=== PATIENT | male | born 1965 | race Caucasian/White ===

== ENCOUNTER 2017-11-26 18:28 | Inpatient (IN) ==
[2017-11-26] MEDS ORDERED: Naloxone 0.4 MG/ML INJ IVP PRN (21:04)
[2017-11-26] MEDS ORDERED: *HR* LORazepam 1 MG TABLET PO PRN (21:10)
[2017-11-26 21:21] LABS: Basophils % 0.1 %; Hematocrit 30.2 % (37.5-50.1); Hemoglobin 9.5 g/dL (12.9-16.9); Immature Granulocytes % 0.9 % (0-4); Lymphocytes # 0.6 K/mcL (0.6-4.6); Lymphocytes % 3.8 %; Mean Corpuscular HGB Conc 31.5 g/dL (31.6-35.5); Mean Corpuscular Hemoglobin 27.9 pg (28.0-33.3); Mean Corpuscular Volume 88.8 fL (83.0-100.0); Mean Platelet Volume 9.4 fL (9.4-12.4); Monocytes # 0.6 K/mcL (0.0-1.3); Monocytes % 3.7 %; Neutrophils # 13.6 K/mcL (1.6-8.9); Nucleated Red Blood Cells 0.1 /100 WBC (0); Platelet Count 282 K/mcL (140-400); Segmented Neutrophils % 91.5 %
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
[2017-11-26] MEDS: Ipratropium/Albuterol Neb 3 ML IH SCH (23:39)
[2017-11-27] MEDS: *HR* Methadone 10 MG TABLET PO SCH ×5 (00:39→23:55)
[2017-11-27] MEDS: Ipratropium/Albuterol Neb 3 ML IH SCH ×6 (04:01→23:48)
[2017-11-27 04:26] LABS: Basophils % 0.1 %; Hematocrit 33.1 % (37.5-50.1); Hemoglobin 10.2 g/dL (12.9-16.9); Immature Granulocytes % 0.8 % (0-4); Lymphocytes # 0.8 K/mcL (0.6-4.6); Lymphocytes % 5.2 %; Mean Corpuscular HGB Conc 30.8 g/dL (31.6-35.5); Mean Corpuscular Hemoglobin 27.6 pg (28.0-33.3); Mean Corpuscular Volume 89.5 fL (83.0-100.0); Monocytes # 0.6 K/mcL (0.0-1.3); Monocytes % 3.6 %; Neutrophils # 14.5 K/mcL (1.6-8.9); Nucleated Red Blood Cells 0.1 /100 WBC (0); Platelet Count 322 K/mcL (140-400); Red Cell Distribution Width 17.9 % (11.5-14.5); Segmented Neutrophils % 90.3 %
[2017-11-27 04:32] LABS: Alanine Aminotransferase 10 Units/L (7-52); Alkaline Phosphatase 124 Units/L (34-104); Aspartate Amino Transferase 12 Units/L (13-39); BUN/Creatinine Ratio 13 (6-26); Bilirubin,Total 0.5 mg/dL (0.3-1.0); Blood Urea Nitrogen 12 mg/dL (6-20); Calcium 8.7 mg/dL (8.6-10.3); Carbon Dioxide 32 mEq/L (23-29); Chloride 98 mEq/L (98-107); Globulin 3.1 g/dL (2.4-3.5); Glucose 144 mg/dL (70-105); INR 2.2; Osmolality,Calculated 280 (280-300); Potassium 4.8 mEq/L (3.5-5.1); Prothrombin Time 25.3 Seconds (9.4-12.1); Sodium 134 mEq/L (136-145); Total Protein 6.1 g/dL (6.4-8.9); eGFR For Non-African Americans > 60 (> 60)
--- NOTE | 2017-11-27 08:32 | Internal Med Progress Note ---
<RosamariaGaby E - Last Filed: 11/27/17 14:00> Hospitalist Progress Note - Encounter Date of Encounter: 11/27/17 Time of Encounter: 08:15 - Exam Vitals: Temp Pulse Resp BP Pulse Ox 97.4 F L 77 16 109/61 99 11/27/17 03:55 11/27/17 06:00 11/27/17 07:35 11/27/17 06:00 11/27/17 07:35 Exam: General: AAOx3, answers questions appropriately, no acute distress Head: atraumatic, normocephalic Heart: RRR, no murmurs, no rubs, no gallops Lungs: diminished breath sounds bilateral lower lobes, no wheezes, no rales Skin: warm, dry, intact Extremities: no pedal edema, pulses equal bilateral lower extremities - Assessment and Plan (1) Acute on chronic respiratory failure with hypoxemia Current Visit: Yes Status: Acute Assessment and Plan: Patient was hypoxic on admiession Currently stable on 3L by MD Due to COPD with exacerbation adn multi-lobar pneumonia Continue Duonebs, salumedrol 40mg Q8 tday, will decrease tomorrow, continue zosyn and levofloxacin (2) COPD exacerbation Current Visit: Yes Status: Acute Assessment and Plan: Continue Duonebs Solumedrol 40 Q 8 for today, tomorrow will decrease depending on clinical picture Continue Zosyn and Levofloxacin (may discontinue zosyn tomorrow depending on clinical picture) (3) Multifocal pneumonia Current Visit: Yes Status: Acute Assessment and Plan: Continue Levofloxacin and Zosyn May discontinue Zosyn tomorrow depending on clinical picture (4) Anemia Current Visit: Yes Status: Acute Assessment and Plan: Possibly due to sepsis Continue to monitor daily labs (5) Coronary artery disease Current Visit: Yes Status: Acute Assessment and Plan: Will restart Xerelto today due to hemoptysis resolving (6) Essential hypertension Current Visit: Yes Status: Acute Assessment and Plan: Continue home medications (7) TANA (acute kidney injury) Current Visit: Yes Status: Resolved Assessment and Plan: resolved after hydration (8) Chronic pain Current Visit: Yes Status: Acute Assessment and Plan: On methadone since 1986 Continue home dose methadone DVT Prophylaxis: restarted Xerelto whdariush 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 - Time Spent with Patient Total time spent is greater than 50% in coordination of care (as documented) at patient's floor/unit and/or counseling patient: Plan of Care Discussed with: patient Internal Medicine: Result - Labs CBC & Chem 7: 11/27/17 03:33 11/27/17 03:33 Labs: Short CBC 11/26/17 11/27/17 Range/Units 21:08 03:33 WBC 14.9 H 16.0 H (4.3-11.1) K/mcL Hgb 9.5 L 10.2 L (12.9-16.9) g/dL Hct 30.2 L 33.1 L (37.5-50.1) % Plt Count 282 322 (140-400) K/mcL Neutrophils # 13.6 H 14.5 H (1.6-8.9) K/mcL BMP 11/27/17 03:33 Sodium 134 L Potassium 4.8 Chloride 98 Carbon Dioxide 32 H BUN 12 Creatinine 0.90 Glucose 144 H Calcium 8.7 Cardiac Enzymes 11/26/17 11/27/17 Range/Units 21:08 03:33 Troponin I 0.04 H* 0.05 H* (< 0.04) ng/mL Liver Function 11/27/17 Range/Units 03:33 Total Bilirubin 0.5 (0.3-1.0) mg/dL AST 12 L (13-39) Units/L ALT 10 (7-52) Units/L Alkaline Phosphatase 124 H (34-104) Units/L Albumin 3.0 L (3.5-5.7) g/dL - ABG Interpretation ABG results: PT/INR, D-dimer PT 25.3 Seconds (9.4-12.1) H 11/27/17 03:33 Consult Discharge Plan - Plan Referrals: NONE,PCP [Primary Care Provider] - <Rachele Christensen - Last Filed: 11/27/17 17:17> Hospitalist Progress Note - Exam Vitals: Temp Pulse Resp BP Pulse Ox 97.4 F L 65 16 99/84 93 11/27/17 08:00 11/27/17 14:00 11/27/17 15:45 11/27/17 14:00 11/27/17 15:45 - Time Spent with Patient Total time spent is greater than 50% in coordination of care (as documented) at patient's floor/unit and/or counseling patient: Internal Medicine: Result - Labs CBC & Chem 7: 11/27/17 03:33 11/27/17 03:33 Labs: Short CBC 11/26/17 11/27/17 Range/Units 21:08 03:33 WBC 14.9 H 16.0 H (4.3-11.1) K/mcL Hgb 9.5 L 10.2 L (12.9-16.9) g/dL Hct 30.2 L 33.1 L (37.5-50.1) % Plt Count 282 322 (140-400) K/mcL Neutrophils # 13.6 H 14.5 H (1.6-8.9) K/mcL BMP 11/27/17 03:33 Sodium 134 L Potassium 4.8 Chloride 98 Carbon Dioxide 32 H BUN 12 Creatinine 0.90 Glucose 144 H Calcium 8.7 Cardiac Enzymes 11/26/17 11/27/17 11/27/17 Range/Units 21:08 03:33 09:29 Troponin I 0.04 H* 0.05 H* < 0.03 (< 0.04) ng/mL Liver Function 11/27/17 Range/Units 03:33 Total Bilirubin 0.5 (0.3-1.0) mg/dL AST 12 L (13-39) Units/L ALT 10 (7-52) Units/L Alkaline Phosphatase 124 H (34-104) Units/L Albumin 3.0 L (3.5-5.7) g/dL - ABG Interpretation ABG results: PT/INR, D-dimer PT 25.3 Seconds (9.4-12.1) H 11/27/17 03:33 - Impressions Impressions Echocardiogram 11/27/17 07:00 Impressions: LVEF 70%. Normal LV chamber size, wall thickness and function. Indeterminate diastolic function. Normal right ventricular structure and function. No evidence of pulmonary hypertension. - Attending Attestation I examined this patient and my medical decision-making was reviewed with the Resident Physician Dr. Blank. I agree with the documented findings, disposition and treatment plan as described except to the extent set forth below Mr. Graff is a 52 year old male with known PMH of COPD, HTN, Tobacco dependence and Chronic hypoxic resp failure presented to [place] emergency department with chief complaint of shortness of breath and cough with expectoration. He does have cough greenish expectoration. Pt stated he is feeling better now. Denied any CP. He is currently on 4 lit O2. Gen: A, A< O x3 Chest Diminished BS, moderate wheezing, no crackles, no rales Heart: S1S2 + RRR No murmurs a/p 1. Acute on chronic hypoxic resp failure 2. MLL CAP - bacterial PNA 3. Acute COPD exacerbation 4. Sepsis with PNA cont empirical abx Levaquin + Also added Zosyn to broaden the coverage since pt does look sick cont Duoneb Added IV steroids medically stable to go to tele floor <Gaby Blank - Last Filed: 11/27/17 14:00> (4) Anemia Qualifiers: Anemia type: unspecified type Qualified Code(s): D64.9 - Anemia, unspecified (5) Coronary artery disease Qualifiers: Coronary Disease-Associated Artery/Lesion type: [place] artery [place] vs. transplanted heart: tribe heart Associated angina: without angina Qualified Code(s): I25.10 - Atherosclerotic heart disease of [place] coronary artery without angina pectoris (8) Chronic pain Qualifiers: Chronic pain type: other chronic pain Qualified Code(s): G89.29 - Other chronic pain
[2017-11-27] MEDS: amLODIPine 5 MG TABLET PO SCH (08:59)
[2017-11-27] MEDS: Gabapentin 300 MG CAPSULE PO SCH ×4 (08:59→19:54)
[2017-11-27] MEDS: Metoprolol 100 MG TABLET PO SCH (08:59)
[2017-11-27] MEDS ORDERED: predniSONE 20 MG TABLET PO SCH (09:00)
[2017-11-27] MEDS: Lisinopril 20 MG TABLET PO SCH (09:06)
[2017-11-27] MEDS ORDERED: Levofloxacin 750 MG/150 ML 750 MG/150 ML BAG IVPB SCH (14:00)
[2017-11-27] MEDS: Piperacillin/Tazobactam 3.375 GM in 0.9 % Sodium Chloride Mini Bag 100 ML IVPB SCH ×2 (14:49→19:53)
[2017-11-27] MEDS: MethylPREDNISolone 40 MG/ML VIAL IVP SCH ×2 (17:13→23:55)
[2017-11-27] MEDS: *HR* Rivaroxaban 10 MG TABLET PO SCH (17:14)
[2017-11-28] MEDS: Piperacillin/Tazobactam 3.375 GM in 0.9 % Sodium Chloride Mini Bag 100 ML IVPB SCH (03:03)
[2017-11-28] MEDS: Ipratropium/Albuterol Neb 3 ML IH SCH ×6 (03:55→23:45)
[2017-11-28 03:56] LABS: Basophils % 0.1 %; Hematocrit 31.1 % (37.5-50.1); Hemoglobin 9.7 g/dL (12.9-16.9); Immature Granulocytes % 1.5 % (0-4); Lymphocytes # 0.7 K/mcL (0.6-4.6); Lymphocytes % 4.3 %; Mean Corpuscular HGB Conc 31.2 g/dL (31.6-35.5); Mean Corpuscular Hemoglobin 27.7 pg (28.0-33.3); Mean Corpuscular Volume 88.9 fL (83.0-100.0); Mean Platelet Volume 9.8 fL (9.4-12.4); Monocytes # 0.8 K/mcL (0.0-1.3); Monocytes % 5.1 %; Neutrophils # 13.7 K/mcL (1.6-8.9); Nucleated Red Blood Cells 0.4 /100 WBC (0); Platelet Count 370 K/mcL (140-400); Red Cell Distribution Width 18.3 % (11.5-14.5)
[2017-11-28 04:16] LABS: Alanine Aminotransferase 11 Units/L (7-52); Albumin 2.9 g/dL (3.5-5.7); Alkaline Phosphatase 107 Units/L (34-104); Aspartate Amino Transferase 14 Units/L (13-39); BUN/Creatinine Ratio 17 (6-26); Bilirubin,Total 0.3 mg/dL (0.3-1.0); Blood Urea Nitrogen 15 mg/dL (6-20); Carbon Dioxide 31 mEq/L (23-29); Chloride 99 mEq/L (98-107); Globulin 2.9 g/dL (2.4-3.5); Glucose 192 mg/dL (70-105); Osmolality,Calculated 286 (280-300); Potassium 4.9 mEq/L (3.5-5.1); Sodium 135 mEq/L (136-145); Total Protein 5.8 g/dL (6.4-8.9); eGFR For Non-African Americans > 60 (> 60)
[2017-11-28] MEDS: *HR* Methadone 10 MG TABLET PO SCH ×4 (05:22→23:39)
[2017-11-28] MEDS: Metoprolol 100 MG TABLET PO SCH (08:13)
[2017-11-28] MEDS: Lisinopril 20 MG TABLET PO SCH (08:13)
[2017-11-28] MEDS: amLODIPine 5 MG TABLET PO SCH (08:13)
[2017-11-28] MEDS: MethylPREDNISolone 40 MG/ML VIAL IVP SCH ×2 (08:13→17:21)
[2017-11-28] MEDS: Gabapentin 300 MG CAPSULE PO SCH ×4 (08:13→21:20)
--- NOTE | 2017-11-28 09:25 | Internal Med Progress Note ---
<MilesvivianGaby E - Last Filed: 11/28/17 10:54> Hospitalist Progress Note - Encounter Date of Encounter: 11/28/17 Time of Encounter: 08:15 - Subjective Interval History: Mr. Graff is a 52 yo male with a history of COPD, HTN, Tobacco dependence, chronic hypoxic respiratory failure. WAs seen at [facility] ED with chief compl aint of shortness of breath, cough with green sputum production. Today he is feeling better, he says his cough is less, he is only bringing up some white or yellow mucus with coughing occasionally. He denies any chest pain adn says his shortness of breath has improved quite a bit. - Exam Vitals: Temp Pulse Resp BP Pulse Ox 97.9 F 81 18 122/66 94 11/28/17 08:05 11/28/17 08:05 11/28/17 07:44 11/28/17 08:05 11/28/17 08:05 Exam: General: AAOx3, answers questions appropriately, no acute distress Head: atraumatic, normocephalic Heart: RRR, no murmurs, no rubs, no gallops Lungs: crackles noted at both lung bases, no wheezes, no rales Skin: warm, dry, intact Extremities: no pedal edema, pulses equal bilateral lower extremities - Assessment and Plan (1) Acute on chronic respiratory failure with hypoxemia Current Visit: Yes Status: Acute Assessment and Plan: Patient was hypoxic on admission Currently stable on 3L by NC Due to COPD with exacerbation and multi-lobar pneumonia Continue Duonebs, salumedrol 40mg Q12 Discontinue Zosyn and Levaquin Start oral doxycyclin (2) COPD exacerbation Current Visit: Yes Status: Acute Assessment and Plan: Continue Duonebs Solumedrol 40mg Q12 Stop levaquin and zosy Start PO doxycyclin (3) Multifocal pneumonia Current Visit: Yes Status: Acute Assessment and Plan: discontinue levaquin and zosyn Start doxycyclin oral (4) Anemia Current Visit: Yes Status: Acute Assessment and Plan: Possibly due to sepsis Continue to monitor with daily labs Today Hgb 9.7 decreased slighly from 10.2 yesterday (5) Coronary artery disease Current Visit: Yes Status: Acute Assessment and Plan: Xerelto restarted yesterday Hemoptysis resolved (6) Essential hypertension Current Visit: Yes Status: Acute Assessment and Plan: continue home medications (7) TANA (acute kidney injury) Current Visit: Yes Status: Resolved Assessment and Plan: resolved with hydration Creatinine 0.89 today (8) Chronic pain Current Visit: Yes Status: Acute Assessment and Plan: On methadone since 1986 Continue home dose of methadone DVT Prophylaxis: restarted Xerelto yesterday which he is on for 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 - Time Spent with Patient Total time spent is greater than 50% in coordination of care (as documented) at patient's floor/unit and/or counseling patient: Plan of Care Discussed with: patient Internal Medicine: Result - Labs CBC & Chem 7: 11/28/17 03:03 11/28/17 03:03 Labs: Short CBC 11/28/17 Range/Units 03:03 WBC 15.4 H (4.3-11.1) K/mcL Hgb 9.7 L (12.9-16.9) g/dL Hct 31.1 L (37.5-50.1) % Plt Count 370 (140-400) K/mcL Neutrophils # 13.7 H (1.6-8.9) K/mcL BMP 11/28/17 03:03 Sodium 135 L Potassium 4.9 Chloride 99 Carbon Dioxide 31 H BUN 15 Creatinine 0.89 Glucose 192 H Calcium 9.0 Cardiac Enzymes 11/27/17 Range/Units 09:29 Troponin I < 0.03 (< 0.04) ng/mL Liver Function 11/28/17 Range/Units 03:03 Total Bilirubin 0.3 (0.3-1.0) mg/dL AST 14 (13-39) Units/L ALT 11 (7-52) Units/L Alkaline Phosphatase 107 H (34-104) Units/L Albumin 2.9 L (3.5-5.7) g/dL - ABG Interpretation ABG results: PT/INR, D-dimer PT 25.3 Seconds (9.4-12.1) H 11/27/17 03:33 - Impressions Impressions Echocardiogram 11/27/17 07:00 Impressions: LVEF 70%. Normal LV chamber size, wall thickness and function. Indeterminate diastolic function. Normal right ventricular structure and function. No evidence of pulmonary hypertension. Consult Discharge Plan - Plan Referrals: NONE,PCP [Primary Care Provider] - <Kamala Pena - Last Filed: 11/28/17 16:37> Hospitalist Progress Note - Exam Vitals: Temp Pulse Resp BP Pulse Ox 98.3 F 72 17 119/63 92 11/28/17 11:50 11/28/17 11:50 11/28/17 16:05 11/28/17 11:50 11/28/17 16:05 - Time Spent with Patient Total time spent is greater than 50% in coordination of care (as documented) at patient's floor/unit and/or counseling patient: Internal Medicine: Result - Labs CBC & Chem 7: 11/28/17 03:03 11/28/17 03:03 Labs: Short CBC 11/28/17 Range/Units 03:03 WBC 15.4 H (4.3-11.1) K/mcL Hgb 9.7 L (12.9-16.9) g/dL Hct 31.1 L (37.5-50.1) % Plt Count 370 (140-400) K/mcL Neutrophils # 13.7 H (1.6-8.9) K/mcL BMP 11/28/17 03:03 Sodium 135 L Potassium 4.9 Chloride 99 Carbon Dioxide 31 H BUN 15 Creatinine 0.89 Glucose 192 H Calcium 9.0 Liver Function 11/28/17 Range/Units 03:03 Total Bilirubin 0.3 (0.3-1.0) mg/dL AST 14 (13-39) Units/L ALT 11 (7-52) Units/L Alkaline Phosphatase 107 H (34-104) Units/L Albumin 2.9 L (3.5-5.7) g/dL - ABG Interpretation ABG results: PT/INR, D-dimer PT 25.3 Seconds (9.4-12.1) H 11/27/17 03:33 - Attending Attestation I examined this patient and my medical decision-making was reviewed with the Resident Physician. I agree with the documented findings, disposition and treatment plan as described except to the extent set forth below. Patient feels better. No acute evetns. Lung sounds coarse on exam, no acute distress. WBC remains elevated but he is on Solu Medrol. Pneumonia as seen on CTA: continue Doxycycline. On discharge needs: [facility] referral for PT/OT, and nursing. <Gaby Blank E - Last Filed: 11/28/17 10:54> (4) Anemia Qualifiers: Anemia type: unspecified type Qualified Code(s): D64.9 - Anemia, unspecified (5) Coronary artery disease Qualifiers: Coronary Disease-Associated Artery/Lesion type: [place] artery [place] vs. transplanted heart: [place] heart Associated angina: without angina Qualified Code(s): I25.10 - Atherosclerotic heart disease of [place] coronary artery without angina pectoris (8) Chronic pain Qualifiers: Chronic pain type: other chronic pain Qualified Code(s): G89.29 - Other chronic pain
[2017-11-28] MEDS: *HR* Rivaroxaban 10 MG TABLET PO SCH (17:21)
[2017-11-28] MEDS: Doxycycline 100 MG CAPSULE PO SCH (21:20)
[2017-11-29] MEDS: Ipratropium/Albuterol Neb 3 ML IH SCH ×6 (04:04→23:17)
[2017-11-29 06:12] LABS: Basophils # 0.1 K/mcL (0.0-0.2); Basophils % 0.3 %; Hematocrit 31.8 % (37.5-50.1); Immature Granulocytes % 3.1 % (0-4); Lymphocytes % 5.6 %; Mean Corpuscular HGB Conc 31.4 g/dL (31.6-35.5); Mean Corpuscular Hemoglobin 28.2 pg (28.0-33.3); Mean Corpuscular Volume 89.8 fL (83.0-100.0); Mean Platelet Volume 9.5 fL (9.4-12.4); Monocytes % 5.4 %; Neutrophils # 15.3 K/mcL (1.6-8.9); Nucleated Red Blood Cells 0.4 /100 WBC (0); Platelet Count 470 K/mcL (140-400); Red Blood Count 3.54 M/mcL (4.19-5.50); Red Cell Distribution Width 18.5 % (11.5-14.5); Segmented Neutrophils % 85.6 %
[2017-11-29] MEDS: *HR* Methadone 10 MG TABLET PO SCH ×3 (06:17→17:14)
[2017-11-29] MEDS: MethylPREDNISolone 40 MG/ML VIAL IVP SCH ×2 (06:18→17:14)
[2017-11-29 06:38] LABS: Platelet Estimate Increased (Normal); Reactive Lymphocytes Present (Not Present)
[2017-11-29 06:43] LABS: Alanine Aminotransferase 30 Units/L (7-52); Albumin 2.9 g/dL (3.5-5.7); Alkaline Phosphatase 91 Units/L (34-104); Aspartate Amino Transferase 39 Units/L (13-39); BUN/Creatinine Ratio 19 (6-26); Bilirubin,Total 0.2 mg/dL (0.3-1.0); Blood Urea Nitrogen 16 mg/dL (6-20); Calcium 8.9 mg/dL (8.6-10.3); Carbon Dioxide 31 mEq/L (23-29); Chloride 101 mEq/L (98-107); Globulin 2.8 g/dL (2.4-3.5); Glucose 190 mg/dL (70-105); Osmolality,Calculated 292 (280-300); Potassium 4.8 mEq/L (3.5-5.1); Sodium 138 mEq/L (136-145); Total Protein 5.7 g/dL (6.4-8.9); eGFR For Non-African Americans > 60 (> 60)
[2017-11-29] MEDS: Gabapentin 300 MG CAPSULE PO SCH ×4 (09:12→21:12)
[2017-11-29] MEDS: Doxycycline 100 MG CAPSULE PO SCH (09:12)
[2017-11-29] MEDS: amLODIPine 5 MG TABLET PO SCH (09:12)
[2017-11-29] MEDS: Lisinopril 20 MG TABLET PO SCH (09:13)
[2017-11-29] MEDS: Metoprolol 100 MG TABLET PO SCH (09:13)
--- NOTE | 2017-11-29 09:16 | Internal Med Progress Note ---
Hospitalist Progress Note - Encounter Date of Encounter: 11/29/17 Time of Encounter: 09:13 - Subjective Interval History: No acute events. Breathing improved. Patient feels like he might pass out. Still dizzy with some vision changes. Denies headache, palpitations, chest pain, SOB, fevers/chills. - Exam Vitals: Temp Pulse Resp BP Pulse Ox 97.7 F 68 16 142/80 95 11/29/17 07:11 11/29/17 07:11 11/29/17 07:39 11/29/17 07:11 11/29/17 07:39 Exam: General: AAOx3, answers questions appropriately, no acute distress Head: atraumatic, normocephalic Heart: RRR, no murmurs, no rubs, no gallops Lungs: CTAB, no wheezes, no rales Skin: warm, dry, intact Extremities: no pedal edema, pulses equal bilateral lower extremities - Assessment and Plan (1) Syncope Current Visit: Yes Status: Acute Assessment and Plan: CT head at [place] had no acute process. Echocardiogram unremarkable. Treated for multifocal pneumonia but still having these complaints. Patient states that he thought this was vision related and needs glasses, however he did have multiple syncopal episodes which is concerning. Will consult Neurology for recommendations. (2) Acute respiratory failure with hypoxia Current Visit: Yes Status: Acute Assessment and Plan: Patient back to Home O2 of 3 L. Continue to taper steroids Levaquin Duo Nebs (3) Anemia Current Visit: Yes Status: Acute (4) COPD exacerbation Current Visit: Yes Status: Acute Assessment and Plan: plan as above. (5) Chronic pain Current Visit: Yes Status: Acute (6) Coronary artery disease Current Visit: Yes Status: Acute (7) Essential hypertension Current Visit: Yes Status: Acute (8) Multifocal pneumonia Current Visit: Yes Status: Acute Assessment and Plan: DC Doxy as leukoctysis worsening will go back to Levaquin. (9) TANA (acute kidney injury) Current Visit: Yes Status: Resolved Assessment and Plan: resolved. DVT Prophylaxis: On Xerelto. 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 - Time Spent with Patient Total time spent is greater than 50% in coordination of care (as documented) at patient's floor/unit and/or counseling patient: Internal Medicine: Result - Labs CBC & Chem 7: 11/29/17 05:52 11/29/17 05:52 Labs: Short CBC 11/29/17 Range/Units 05:52 WBC 17.9 H (4.3-11.1) K/mcL Hgb 10.0 L (12.9-16.9) g/dL Hct 31.8 L (37.5-50.1) % Plt Count 470 H (140-400) K/mcL Neutrophils # 15.3 H (1.6-8.9) K/mcL BMP 11/29/17 05:52 Sodium 138 Potassium 4.8 Chloride 101 Carbon Dioxide 31 H BUN 16 Creatinine 0.86 Glucose 190 H Calcium 8.9 Liver Function 11/29/17 Range/Units 05:52 Total Bilirubin 0.2 L (0.3-1.0) mg/dL AST 39 (13-39) Units/L ALT 30 (7-52) Units/L Alkaline Phosphatase 91 (34-104) Units/L Albumin 2.9 L (3.5-5.7) g/dL - ABG Interpretation ABG results: PT/INR, D-dimer PT 25.3 Seconds (9.4-12.1) H 11/27/17 03:33 Consult Discharge Plan - Plan Referrals: NONE,PCP [Primary Care Provider] - (3) Anemia Qualifiers: Anemia type: unspecified type Qualified Code(s): D64.9 - Anemia, unspecified (5) Chronic pain Qualifiers: Chronic pain type: other chronic pain Qualified Code(s): G89.29 - Other chronic pain (6) Coronary artery disease Qualifiers: Coronary Disease-Associated Artery/Lesion type: [place] artery [place] vs. transplanted heart: [place] heart Associated angina: without angina Qualified Code(s): I25.10 - Atherosclerotic heart disease of [place] coronary artery without angina pectoris
[2017-11-29 09:55] LABS: Adenovirus Not Detected (Not Detect); Bordetella Pertussis Not Detected (Not Detect); Coronavirus 229E Not Detected (Not Detect); Coronavirus HKU1 Not Detected (Not Detect); Coronavirus NL63 Not Detected (Not Detect); Coronavirus OC43 Not Detected (Not Detect); Human Metapneumovirus Not Detected (Not Detect); Human Rhinovirus/Enterovirus Not Detected (Not Detect); Influenza A Subtype 2009 H1 Not Detected (Not Detect); Influenza A Untypeable Not Detected (Not Detect); Influenza B Not Detected (Not Detect); Parainfluenza Virus 1 Not Detected (Not Detect); Parainfluenza Virus 2 Not Detected (Not Detect); Parainfluenza Virus 3 Not Detected (Not Detect); Parainfluenza Virus 4 Not Detected (Not Detect); Respiratory Syncytial Virus Not Detected (Not Detect)
[2017-11-29 09:56] LABS: Chlamydophila pneumoniae Not Detected (Not Detect); Mycoplasma pneumoniae Not Detected (Not Detect)
[2017-11-29] MEDS: levoFLOXacin 750 MG TABLET PO SCH (12:08)
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
[2017-11-29] MEDS: *HR* Rivaroxaban 10 MG TABLET PO SCH (17:14)
[2017-11-30] MEDS: *HR* Methadone 10 MG TABLET PO SCH ×3 (00:22→11:55)
[2017-11-30] MEDS: Ipratropium/Albuterol Neb 3 ML IH SCH ×3 (03:14→10:50)
[2017-11-30 04:10] LABS: Basophils # 0.1 K/mcL (0.0-0.2); Basophils % 0.6 %; Hematocrit 35.8 % (37.5-50.1); Hemoglobin 10.9 g/dL (12.9-16.9); Immature Granulocytes % 5.1 % (0-4); Lymphocytes # 1.1 K/mcL (0.6-4.6); Lymphocytes % 5.5 %; Mean Corpuscular HGB Conc 30.4 g/dL (31.6-35.5); Mean Corpuscular Hemoglobin 27.6 pg (28.0-33.3); Mean Corpuscular Volume 90.6 fL (83.0-100.0); Mean Platelet Volume 9.2 fL (9.4-12.4); Monocytes # 1.2 K/mcL (0.0-1.3); Nucleated Red Blood Cells 0.4 /100 WBC (0); Platelet Count 577 K/mcL (140-400); Red Blood Count 3.95 M/mcL (4.19-5.50); Red Cell Distribution Width 18.3 % (11.5-14.5); Segmented Neutrophils % 82.8 %
[2017-11-30 04:19] LABS: Neutrophils # 16.2 K/mcL (1.6-8.9)
[2017-11-30 04:56] LABS: Anisocytosis 1+ (Not Present); Platelet Estimate Marked Increase (Normal)
[2017-11-30] MEDS: MethylPREDNISolone 40 MG/ML VIAL IVP SCH (06:13)
[2017-11-30 07:18] VITALS: BP 155/83
[2017-11-30] MEDS: levoFLOXacin 750 MG TABLET PO SCH (09:23)
[2017-11-30] MEDS: Lisinopril 20 MG TABLET PO SCH (09:24)
[2017-11-30] MEDS: amLODIPine 5 MG TABLET PO SCH (09:24)
[2017-11-30] MEDS: Metoprolol 100 MG TABLET PO SCH (09:24)
[2017-11-30] MEDS: Gabapentin 300 MG CAPSULE PO SCH ×2 (09:24→11:55)
--- NOTE | 2017-11-30 13:14 | Discharge Summary ---
<MilesnavarroMisbah alegreGaby E - Last Filed: 11/30/17 14:23> Orders not resulted at time of discharge: Pending orders 11/27/17 04:00 Occult Blood,Stool [BF] AM 0400 11/29/17 09:27 EKG [ECG 12 lead ECG] [ECG] Routine Date of Encounter: 11/30/17 Time of Encounter: 10:00 - Discharge Diagnosis (1) Acute on chronic respiratory failure with hypoxemia Priority: Primary Status: Acute Assessment and Plan: Patient is have to home 02 at 3L Discharge hoem on 5 days levaquin 750mg daily, 40mg prednisone daily for 3 days (2) COPD exacerbation Priority: Primary Status: Acute Assessment and Plan: plan as above (3) Multifocal pneumonia Priority: Primary Status: Acute Assessment and Plan: plan as above (4) Anemia Priority: Secondary Status: Acute Assessment and Plan: resolving, probably from sepsis Today 10.9 increased from 10.0 yesterday Qualifiers: Anemia type: unspecified type Qualified Code(s): D64.9 - Anemia, unspecified (5) Coronary artery disease Priority: Secondary Status: Chronic Assessment and Plan: continue xerelto Qualifiers: Coronary Disease-Associated Artery/Lesion type: [place] artery [place] vs. transplanted heart: [place] heart Associated angina: without angina Qualified Code(s): I25.10 - Atherosclerotic heart disease of [place] coronary artery without angina pectoris (6) Essential hypertension Priority: Secondary Status: Chronic Assessment and Plan: continue home medications (7) TANA (acute kidney injury) Priority: Primary Status: Resolved (8) Chronic pain Priority: Secondary Status: Acute Assessment and Plan: continue methadone Qualifiers: Chronic pain type: other chronic pain Qualified Code(s): G89.29 - Other chronic pain Hospital course: Mr. Graff is a 52 yo male with a history of COPD, HTN, Tobacco dependence, chronic hypoxic respiratory failure. WAs seen at [place] ED with chief complaint of shortness of breath, cough with green sputum production. Treated for multilobar pneumonia with levaquin and steroids. Has shown significant clinical improvement throughout his stay. Will follow up with cardiology abotu syncopal episodes, has not had one in hospital and after speakign with cardiology they will see him in 1 week to discuss further testing. Discharge discussed with: patient - Time Spent with Patient Total time spent providing and/or coordinating discharge services: - Discharge Medications Prescriptions: levoFLOXacin [Levaquin] 750 mg PO DAILY #5 tablet predniSONE [PredniSONE] 40 mg PO DAILY #3 tablet Home Medications: Albuterol Sulfate [Albuterol Inhaler] 2 puff IH Q4HR PRN 08/28/17 [History] Fluticasone/Vilanterol [Breo Ellipta 100-25 Mcg INH] 1 puff IH BID 08/28/17 [History] LORazepam [Ativan] 1 mg PO TID PRN 08/28/17 [History] Lisinopril [Zestril] 5 mg PO DAILY 08/28/17 [History] Methadone 10 mg PO Q6HR 08/28/17 [History] Montelukast [Singulair] 10 mg PO HS 08/28/17 [History] Pravastatin Sodium [Pravachol] 20 mg PO DAILY 08/28/17 [History] Rivaroxaban [Xarelto] 20 mg PO DAILY 08/28/17 [History] amLODIPine [Norvasc] 5 mg PO DAILY 08/28/17 [History] Aspirin [Lo-Dose Aspirin EC] 81 mg PO DAILY 11/26/17 [History] Cyclobenzaprine [Flexeril] 10 mg PO TID 11/26/17 [History] Gabapentin [Neurontin] 600 mg PO QID 11/26/17 [History] Nitroglycerin [Nitrostat] 0.4 mg SL PRN PRN 11/26/17 [History] Oxygen 1 each .ROUTE AD 11/26/17 [History] Tiotropium [place] [Spiriva Respimat] 2 puff IH DAILY 11/26/17 [History] Citalopram Hydrobromide [Citalopram HBr] 40 mg PO DAILY 11/27/17 [History] Metoprolol Succinate [Toprol Xl] 100 mg PO DAILY 11/29/17 [History] levoFLOXacin [Levaquin] 750 mg PO DAILY #5 tablet 11/30/17 [Rx] predniSONE [PredniSONE] 40 mg PO DAILY #3 tablet 11/30/17 [Rx] Allergies/Adverse Reactions: Allergy/AdvReac Type Severity Reaction Status Date / Time No Known Allergies Allergy Verified 11/26/17 15:28 Date of admission: 11/26/17 19:49 Primary care physician: PCP NONE Consults: 11/26/17 22:57 Consult to Physical Therapy [CONS] Routine Comment: Evaluate, develop and implement POC Reason for Consult: falls Does patient have active BEDREST order?: No Is patient medically & hemodynamically stable?: Yes Patient assessed for mobility or mobilized this visit?: No 11/29/17 09:11 Consult to Neurology [CONS] Routine Consulting Provider: [facility] Reason for Consult: Syncopal episodes. Call Completed: Yes Discharging clinician: Kamala Pena Anticipated date of discharge: 11/30/17 - Constitutional Vitals: Temp Pulse Resp BP Pulse Ox 98 F 65 16 155/83 97 11/30/17 07:15 11/30/17 07:15 11/30/17 10:50 11/30/17 07:15 11/30/17 10:50 General appearance: Present: cooperative, A&O X 3, pleasant, answers questions appropriately Exam: General: AAOx3, answers questions appropriately, no acute distress Head: atraumatic, normocephalic Heart: RRR, no murmurs, no rubs, no gallops Lungs: CTAB, no wheezes, no rales Skin: warm, dry, intact Extremities: no pedal edema, pulses equal bilateral lower extremities - Head Head exam: Present: atraumatic, normal inspection - ENT ENT exam: Present: mucous membranes moist, normal oropharynx - Respiratory Respiratory exam: Present: CTAB. Absent: rhonchi, stridor, wheezes - Cardiovascular Cardiovascular exam: Present: RRR. Absent: clicks, diastolic murmur, gallop - GI/Abdominal GI/Abdominal exam: Present: normal bowel sounds, soft. Absent: rebound, rigid, tenderness - Patient Status Disposition: Home, Self-Care Condition: Good Functional capacity at discharge: independent ambulation Overall status at discharge: patient is progressing back to baseline - Ambulatory Orders Ambulatory Orders: Complete Blood Count [HEME] Time Frame: 3 Days, Facility: [facility], Location: Lab - Discharge Instructions Instructions: Prednisone (By mouth), Levofloxacin (By mouth), Acute Respiratory Distress Syndrome (DC), Syncope (DC), Chronic Hypertension (DC), Anemia (GEN), COPD Exacerbation, [employer] (GEN) Follow Up With: Cally Palacios CNP [Advanced Practice Nurse] - 12/04/17 1:40 pm [facility] [place] [Provider Group] Additional Instructions: Please follow up with Cardiology for syncopal episodes Please have blood draw to check white blood cells 3 days after discharge - Diet and Activity Activity: increase activity as tolerated Diet: advance to your usual diet <Kamala Pena - Last Filed: 11/30/17 15:34> Orders not resulted at time of discharge: Pending orders 11/27/17 04:00 Occult Blood,Stool [BF] AM 0400 - Discharge Diagnosis (1) Syncope Status: Acute Qualifiers: Syncope type: vasovagal syncope Qualified Code(s): R55 - Syncope and collapse Hospital course: Mr. Graff is a 52 year old male - Time Spent with Patient Total time spent providing and/or coordinating discharge services: Date of admission: 11/26/17 19:49 Primary care physician: PCP NONE Consults: 11/26/17 22:57 Consult to Physical Therapy [CONS] Routine Comment: Evaluate, develop and implement POC Reason for Consult: falls Does patient have active BEDREST order?: No Is patient medically & hemodynamically stable?: Yes Patient assessed for mobility or mobilized this visit?: No 11/29/17 09:11 Consult to Neurology [CONS] Routine Consulting Provider: [facility] Reason for Consult: Syncopal episodes. Call Completed: Yes - Constitutional Vitals: Temp Pulse Resp BP Pulse Ox 98 F 65 16 155/83 97 11/30/17 07:15 11/30/17 07:15 11/30/17 10:50 11/30/17 07:15 11/30/17 10:50 - Attending Attestation I examined this patient and my medical decision-making was reviewed with the Resident Physician. I agree with the documented findings, disposition and treatment plan as described except to the extent set forth below.
--- NOTE | 2017-11-30 14:47 | Electrocardiograph Report ---
[address] [id number] Test Date: 2017-11-30 Pat Name: Roosevelt Graff Department: 111 Room: 2NE20 Gender: M Dermatologist: : 1965 Requested By: Darin Pena Order Number: [id number] Reading MD: Abhay Gaston Measurements Intervals [place] Rate: 64 P: 42 AR: 142 QRS: -11 QRSD: 117 T: 5 QT: 431 QTc: 441 Interpretive Statements SINUS RHYTHM WITH OCCASIONAL SUPRAVENTRICULAR PREMATURE COMPLEXES LOW QRS VOLTAGE IN EXTREMITY LEADS MODERATE INTRAVENTRICULAR CONDUCTION DELAY Electronically Signed On 11-30-2017 14:46:14 EDT by Abhay Gaston
== END 2017-11-30 15:36 | disposition home or self-care (01) | DRG 871 ==
LOC: SUATTDRO 19:49 → ICNU 19:49 → 2NENU 11-27 22:32
PROVIDERS: ADMIT Internal Medicine Nephrology; ATTEND Student in an Organized Health Care Education/Training Program

== ENCOUNTER 2018-12-30 17:59 | Inpatient (IN) ==
[2018-12-30] MEDS ORDERED: Naloxone 0.4 MG/ML INJ IVP PRN ×2 (20:19→21:07)
[2018-12-31] MEDS ORDERED: Azithromycin 250 MG TABLET PO ONE (01:32)
[2018-12-31] MEDS ORDERED: *HR* LORazepam 2 MG/ML VIAL IVP ONE (01:44)
[2018-12-31] MEDS ORDERED: Gabapentin 300 MG CAPSULE PO ONE (02:07)
[2018-12-31] MEDS ORDERED: Acetaminophen 325 MG TABLET PO PRN (02:09)
[2018-12-31 02:43] LABS: BUN/Creatinine Ratio 4 (6-26); Blood Urea Nitrogen 4 mg/dL (6-20); Calcium 8.7 mg/dL (8.6-10.3); Carbon Dioxide 37 mEq/L (23-29); Chloride 97 mEq/L (98-107); Glucose 90 mg/dL (70-105); Osmolality,Calculated 278 (280-300); Potassium 4.3 mEq/L (3.5-5.1); Sodium 136 mEq/L (136-145); eGFR For African Americans > 60 (> 60); eGFR For Non-African Americans > 60 (> 60)
[2018-12-31 04:13] LABS: Basophils # 0.1 K/mcL (0.0-0.2); Basophils % 0.7 %; Eosinophils # 0.5 K/mcL (0.0-0.6); Eosinophils % 5.3 %; Hematocrit 37.4 % (37.5-50.1); Hemoglobin 11.9 g/dL (12.9-16.9); Immature Granulocytes % 0.3 % (0-4); Lymphocytes # 2.4 K/mcL (0.6-4.6); Lymphocytes % 24.3 %; Mean Corpuscular HGB Conc 31.8 g/dL (31.6-35.5); Mean Corpuscular Hemoglobin 27.9 pg (28.0-33.3); Mean Corpuscular Volume 87.8 fL (83.0-100.0); Mean Platelet Volume 9.3 fL (9.4-12.4); Monocytes # 1.3 K/mcL (0.0-1.3); Monocytes % 13.4 %; Neutrophils # 5.4 K/mcL (1.6-8.9); Platelet Count 267 K/mcL (140-400); Red Blood Count 4.26 M/mcL (4.19-5.50); Red Cell Distribution Width 16.1 % (11.5-14.5); White Blood Count 9.7 K/mcL (4.3-11.1)
[2018-12-31] MEDS: Ipratropium/Albuterol Neb 3 ML IH SCH ×5 (04:54→20:10)
[2018-12-31] MEDS: Metoprolol XL (24 HR) Succ 50 MG TAB.ER.24H PO SCH (07:55)
[2018-12-31] MEDS: Aspirin 81 MG TAB.CHEW PO SCH (07:55)
[2018-12-31] MEDS ORDERED: amLODIPine 5 MG TABLET PO SCH (09:00)
[2018-12-31] MEDS: predniSONE 20 MG TABLET PO SCH (09:38)
[2018-12-31 09:53] LABS: Chol/HDL Ratio 4.6 (0-4.9)
[2018-12-31 11:59] LABS: ABG Base Excess 11 mEq/L (-2 to 3); ABG HCO3 40 mEq/L (21-27); ABG Oxygen Saturation 94 % (95-98); ABG PCO2 77 mmHg (35-45); ABG PH 7.33 pH Units (7.32-7.45); ABG PO2 82 mmHg (85-104); ABG TCO2 42 mEq/L (20-26)
[2018-12-31] MEDS ORDERED: *HR* LORazepam 2 MG/ML VIAL IM STA (15:18)
[2018-12-31] MEDS: Azithromycin 250 MG TABLET PO SCH (18:03)
[2018-12-31] MEDS: *HR* Methadone 10 MG TABLET PO SCH (21:27)
[2019-01-01] MEDS: Ipratropium/Albuterol Neb 3 ML IH SCH ×7 (00:32→22:53)
[2019-01-01 02:58] LABS: BUN/Creatinine Ratio 12 (6-26); Blood Urea Nitrogen 11 mg/dL (6-20); Calcium 8.8 mg/dL (8.6-10.3); Carbon Dioxide 32 mEq/L (23-29); Chloride 99 mEq/L (98-107); Glucose 130 mg/dL (70-105); Osmolality,Calculated 285 (280-300); Potassium 4.8 mEq/L (3.5-5.1); Sodium 137 mEq/L (136-145); eGFR For African Americans > 60 (> 60); eGFR For Non-African Americans > 60 (> 60)
[2019-01-01 04:20] LABS: ABG Base Excess 7 mEq/L (-2 to 3); ABG HCO3 34 mEq/L (21-27); ABG Oxygen Saturation 94 % (95-98); ABG PCO2 57 mmHg (35-45); ABG PH 7.38 pH Units (7.32-7.45); ABG PO2 73 mmHg (85-104); ABG TCO2 36 mEq/L (20-26)
[2019-01-01 04:51] LABS: Bilirubin,Urine Negative (Negative); Blood,Urine Negative (Negative); Clarity,Urine Clear (Clear); Color,Urine Yellow (Yellow); Glucose,Urine (UA) Normal (Normal); Ketones,Urine Negative (Negative); Leukocyte Esterase,Urine Negative (Negative); Nitrite,Urine Negative (Negative); PH,Urine 6.5 pH Units (5.0-8.0); Protein,Urine Negative (Neg-Trace); Specific Gravity,Urine 1.015 (1.010-1.025); Urobilinogen,Urine Normal (Normal)
[2019-01-01] MEDS: *HR* Methadone 10 MG TABLET PO SCH ×3 (05:50→20:42)
[2019-01-01] MEDS: Aspirin 81 MG TAB.CHEW PO SCH (10:18)
[2019-01-01] MEDS: amLODIPine 5 MG TABLET PO SCH (10:18)
[2019-01-01] MEDS: Azithromycin 250 MG TABLET PO SCH (10:18)
[2019-01-01] MEDS: Metoprolol XL (24 HR) Succ 50 MG TAB.ER.24H PO SCH (10:18)
[2019-01-01] MEDS: predniSONE 20 MG TABLET PO SCH (10:18)
[2019-01-01] MEDS ORDERED: Nitroglycerin 0.4 MG TAB.SUBL SL PRN (10:56)
[2019-01-01] MEDS: *HR* Heparin 5,000 UNIT/ML VIAL SQ SCH ×2 (14:43→20:42)
[2019-01-01] MEDS ORDERED: NON-FORMULARY MEDICATION 1 EACH EACH (Pravastatin Sodium [Pravachol] 20 MG) PO SCH (18:00)
[2019-01-02 02:17] LABS: Basophils % 0.1 %; Eosinophils % 0.1 %; Hematocrit 37.6 % (37.5-50.1); Hemoglobin 11.4 g/dL (12.9-16.9); Immature Granulocytes % 0.7 % (0-4); Lymphocytes # 2.1 K/mcL (0.6-4.6); Lymphocytes % 14.1 %; Mean Corpuscular HGB Conc 30.3 g/dL (31.6-35.5); Mean Corpuscular Hemoglobin 27.7 pg (28.0-33.3); Mean Corpuscular Volume 91.3 fL (83.0-100.0); Monocytes # 1.2 K/mcL (0.0-1.3); Monocytes % 8.1 %; Platelet Count 302 K/mcL (140-400); Red Blood Count 4.12 M/mcL (4.19-5.50); Red Cell Distribution Width 16.5 % (11.5-14.5); Segmented Neutrophils % 76.9 %
[2019-01-02 02:18] LABS: Neutrophils # 11.5 K/mcL (1.6-8.9); White Blood Count 14.9 K/mcL (4.3-11.1)
[2019-01-02 02:41] LABS: BUN/Creatinine Ratio 11 (6-26); Blood Urea Nitrogen 14 mg/dL (6-20); Calcium 8.9 mg/dL (8.6-10.3); Carbon Dioxide 33 mEq/L (23-29); Chloride 98 mEq/L (98-107); Glucose 116 mg/dL (70-105); Osmolality,Calculated 285 (280-300); Potassium 4.7 mEq/L (3.5-5.1); Sodium 137 mEq/L (136-145); eGFR For African Americans > 60 (> 60); eGFR For Non-African Americans > 60 (> 60)
[2019-01-02] MEDS: Ipratropium/Albuterol Neb 3 ML IH SCH ×4 (04:46→15:58)
[2019-01-02] MEDS: *HR* Heparin 5,000 UNIT/ML VIAL SQ SCH (06:19)
[2019-01-02] MEDS: *HR* Methadone 10 MG TABLET PO SCH (06:19)
[2019-01-02] MEDS ORDERED: *HR* Midazolam HCl 2 MG/2 ML VIAL ONE (09:41)
[2019-01-02] MEDS ORDERED: *HR* FentaNYL (PF) 100 MCG/2 ML VIAL ONE (10:03)
[2019-01-02] MEDS ORDERED: Heparin 1,000 UNITS/500 mL 500 ML ONE (10:23)
[2019-01-02] MEDS ORDERED: Verapamil 5 MG/2 ML VIAL ONE (10:23)
[2019-01-02] MEDS ORDERED: ISOVUE-370 200 ML INFUS..BTL ONE (10:23)
[2019-01-02] MEDS ORDERED: *HR* Heparin 10,000 UNIT/10 ML VIAL ONE (10:23)
[2019-01-02] MEDS ORDERED: Nitroglycerin 1,000 MCG/10 ML VIAL IV ONE (10:24)
[2019-01-02] MEDS: predniSONE 20 MG TABLET PO SCH (11:33)
[2019-01-02] MEDS: amLODIPine 5 MG TABLET PO SCH (11:33)
[2019-01-02] MEDS: Metoprolol XL (24 HR) Succ 50 MG TAB.ER.24H PO SCH (11:34)
[2019-01-02] MEDS: Aspirin 81 MG TAB.CHEW PO SCH (11:34)
[2019-01-02] MEDS: Azithromycin 250 MG TABLET PO SCH (11:34)
[2019-01-02 12:34] VITALS: BP 129/73
== END 2019-01-02 16:03 | disposition home or self-care (01) | DRG 69 ==
LOC: 3BNU
PROVIDERS: ADMIT Family Medicine; ATTEND Family Medicine

== ENCOUNTER 2020-03-22 18:16 | Inpatient (IN) ==
[2020-03-22] MEDS ORDERED: Isovue-370 500 ML BOTTLE IVP ONE (19:32)
[2020-03-22 19:48] LABS: Basophils % 0.2 %; Nucleated Red Blood Cells 0.1 /100 WBC (0)
[2020-03-22 19:50] LABS: Basophils # 0.1 K/mcL (0.0-0.2); Hematocrit 33.3 % (37.5-50.1); Hemoglobin 9.6 g/dL (12.9-16.9); Immature Granulocytes % 0.9 % (0-4); Lymphocytes # 1.7 K/mcL (0.6-4.6); Mean Corpuscular HGB Conc 28.8 g/dL (31.6-35.5); Mean Corpuscular Hemoglobin 27.1 pg (28.0-33.3); Mean Corpuscular Volume 94.1 fL (83.0-100.0); Mean Platelet Volume 9.7 fL (9.4-12.4); Monocytes # 2.4 K/mcL (0.0-1.3); Monocytes % 8.7 %; Neutrophils # 23.4 K/mcL (1.6-8.9); Platelet Count 318 K/mcL (140-400); Red Blood Count 3.54 M/mcL (4.19-5.50); Red Cell Distribution Width 20.2 % (11.5-14.5); Segmented Neutrophils % 84.2 %; White Blood Count 27.8 K/mcL (4.3-11.1)
[2020-03-22 20:02] LABS: Alanine Aminotransferase 17 Units/L (7-52); Albumin/Globulin Ratio 0.9 (1.1-2.2); Alkaline Phosphatase 100 Units/L (34-104); Aspartate Amino Transferase 22 Units/L (13-39); BUN/Creatinine Ratio 16 (6-26); Bilirubin,Direct 0.3 mg/dL (0.0-0.2); Bilirubin,Indirect 0.4 mg/dL (0.0-1.0); Bilirubin,Total 0.7 mg/dL (0.3-1.0); Blood Urea Nitrogen 22 mg/dL (6-20); Calcium 8.4 mg/dL (8.6-10.3); Carbon Dioxide 35 mEq/L (23-29); Chloride 96 mEq/L (98-107); Ethanol < 10 mg/dL (Less than 10); Globulin 3.3 g/dL (2.4-3.5); Glucose 101 mg/dL (70-105); Lipase 3 Units/L (11-82); Osmolality,Calculated 285 (280-300); Potassium 4.1 mEq/L (3.5-5.1); Sodium 136 mEq/L (136-145); Total Protein 6.3 g/dL (6.4-8.9); eGFR For African Americans > 60 (> 60); eGFR For Non-African Americans 55 (> 60)
[2020-03-22 20:34] LABS: Anisocytosis 2+ (Not Present); Hypochromasia Present (Not Present); Macrocytosis Present (Not Present); Microcytosis Present (Not Present); Poikilocytosis 1+ (Not Present); Stomatocytes 1+ (Not Present)
[2020-03-22 20:35] LABS: Platelet Estimate Normal (Normal)
[2020-03-22] MEDS ORDERED: 0.9 % Sodium Chloride 500 ML IVC ONE (20:44)
[2020-03-22] MEDS ORDERED: Piperacillin/Tazobactam 3.375 GM in 0.9 % Sodium Chloride Mini Bag 100 ML IVPB ONE (20:45)
[2020-03-22] MEDS ORDERED: Azithromycin 500 MG in 0.9 % Sodium Chloride 250 ML IVPB ONE (20:49)
[2020-03-22 22:14] LABS: Amphetamine Screen,Urine Negative ng/mL (Cutoff=1000); Barbiturate Screen,Urine Negative ng/mL (Cutoff=200); Benzodiazepines Screen,Urine Negative ng/mL (Cutoff=200); Cannabinoid Screen,Urine Negative ng/mL (Cutoff = 50); Cocaine Screen,Urine Negative ng/mL (Cutoff= 300); Opiate Screen,Urine Positive ng/mL (Cutoff=300); Phencyclidine Screen,Urine Negative ng/mL (Cutoff=25)
[2020-03-22] MEDS ORDERED: Aspirin 325 MG TABLET PO ONE (22:15)
[2020-03-22] MEDS ORDERED: Naloxone 0.4 MG/ML INJ IVP PRN (22:46)
[2020-03-22] MEDS ORDERED: Ondansetron 4 MG/2 ML VIAL IVP PRN (22:46)
[2020-03-22] MEDS ORDERED: 0.9 % Sodium Chloride 1,000 ML IVC SCH (23:00)
[2020-03-23 01:27] LABS: Basophils # 0.1 K/mcL (0.0-0.2); Basophils % 0.2 %; Hematocrit 32.3 % (37.5-50.1); Hemoglobin 9.7 g/dL (12.9-16.9); Immature Granulocytes % 0.6 % (0-4); Lymphocytes # 1.6 K/mcL (0.6-4.6); Lymphocytes % 6.1 %; Mean Corpuscular Hemoglobin 27.8 pg (28.0-33.3); Mean Corpuscular Volume 92.6 fL (83.0-100.0); Mean Platelet Volume 9.5 fL (9.4-12.4); Monocytes # 2.3 K/mcL (0.0-1.3); Monocytes % 8.6 %; Neutrophils # 22.1 K/mcL (1.6-8.9); Nucleated Red Blood Cells 0.2 /100 WBC (0); Platelet Count 266 K/mcL (140-400); Red Blood Count 3.49 M/mcL (4.19-5.50); Red Cell Distribution Width 20.7 % (11.5-14.5); Segmented Neutrophils % 84.5 %; White Blood Count 26.2 K/mcL (4.3-11.1)
[2020-03-23 01:46] LABS: Alanine Aminotransferase 14 Units/L (7-52); Albumin 2.8 g/dL (3.5-5.7); Alkaline Phosphatase 89 Units/L (34-104); Aspartate Amino Transferase 18 Units/L (13-39); BUN/Creatinine Ratio 19 (6-26); Bilirubin,Total 0.8 mg/dL (0.3-1.0); Blood Urea Nitrogen 23 mg/dL (6-20); Carbon Dioxide 33 mEq/L (23-29); Chloride 99 mEq/L (98-107); Globulin 2.9 g/dL (2.4-3.5); Glucose 89 mg/dL (70-105); Lactate Dehydrogenase 115 Units/L (140-271); Osmolality,Calculated 287 (280-300); Sodium 137 mEq/L (136-145); Total Protein 5.7 g/dL (6.4-8.9); eGFR For African Americans > 60 (> 60); eGFR For Non-African Americans > 60 (> 60)
[2020-03-23 01:56] LABS: Anisocytosis 1+ (Not Present); Platelet Estimate Normal (Normal)
[2020-03-23] MEDS: Ipratropium/Albuterol Neb 3 ML IH SCH ×6 (04:26→23:10)
[2020-03-23] MEDS: Piperacillin/Tazobactam 3.375 GM in 0.9 % Sodium Chloride Mini Bag 100 ML IVPB SCH ×2 (07:47→15:48)
[2020-03-23] MEDS ORDERED: Perflutren Lipid Microsphere 1.3 ML in 0.9 % Sodium Chloride 8.7 ML IVP PRN (15:07)
[2020-03-23] MEDS: Aspirin Enteric Coated 81 MG Tablet PO SCH (15:48)
[2020-03-23] MEDS: *HR* Rivaroxaban 10 MG TABLET PO SCH (15:48)
[2020-03-23] MEDS: Metoprolol XL (24 HR) Succ 25 MG TAB.ER.24H PO SCH (15:48)
[2020-03-23] MEDS ORDERED: Vancomycin 1,250 MG/262.5 ML IV.SOLN IVPB SCH (21:00)
[2020-03-23] MEDS: Azithromycin 500 MG in 0.9 % Sodium Chloride 250 ML IVPB SCH (22:27)
[2020-03-24] MEDS: Piperacillin/Tazobactam 3.375 GM in 0.9 % Sodium Chloride Mini Bag 100 ML IVPB SCH ×3 (00:18→16:48)
[2020-03-24 01:11] LABS: Basophils % 0.2 %; Eosinophils % 0.2 %; Hematocrit 27.9 % (37.5-50.1); Hemoglobin 8.3 g/dL (12.9-16.9); Immature Granulocytes % 0.5 % (0-4); Lymphocytes # 1.5 K/mcL (0.6-4.6); Lymphocytes % 10.3 %; Mean Corpuscular HGB Conc 29.7 g/dL (31.6-35.5); Mean Corpuscular Hemoglobin 27.5 pg (28.0-33.3); Mean Corpuscular Volume 92.4 fL (83.0-100.0); Mean Platelet Volume 9.8 fL (9.4-12.4); Monocytes % 7.2 %; Neutrophils # 11.4 K/mcL (1.6-8.9); Nucleated Red Blood Cells 0.4 /100 WBC (0); Platelet Count 250 K/mcL (140-400); Red Blood Count 3.02 M/mcL (4.19-5.50); Red Cell Distribution Width 20.5 % (11.5-14.5); Segmented Neutrophils % 81.6 %
[2020-03-24 02:04] LABS: BUN/Creatinine Ratio 18 (6-26); Blood Urea Nitrogen 25 mg/dL (6-20); Calcium 7.7 mg/dL (8.6-10.3); Carbon Dioxide 35 mEq/L (23-29); Chloride 101 mEq/L (98-107); Glucose 89 mg/dL (70-105); Osmolality,Calculated 292 (280-300); Potassium 3.5 mEq/L (3.5-5.1); Sodium 139 mEq/L (136-145); eGFR For African Americans > 60 (> 60); eGFR For Non-African Americans 54 (> 60)
[2020-03-24] MEDS: Ipratropium/Albuterol Neb 3 ML IH SCH ×6 (04:04→23:42)
[2020-03-24] MEDS ORDERED: *HR* LORazepam 0.5 MG TABLET PO PRN (08:03)
[2020-03-24] MEDS ORDERED: Nitroglycerin 0.4 MG TAB.SUBL SL PRN (08:03)
[2020-03-24] MEDS: Aspirin Enteric Coated 81 MG Tablet PO SCH (08:21)
[2020-03-24] MEDS: Metoprolol XL (24 HR) Succ 25 MG TAB.ER.24H PO SCH (08:23)
[2020-03-24] MEDS: Colchicine 0.6 MG TABLET PO SCH (10:15)
[2020-03-24] MEDS: *HR* Methadone 10 MG TABLET PO SCH (10:15)
[2020-03-24] MEDS: Lactulose Oral Soln 20 GM/30 ML UDC PO SCH ×3 (10:16→19:57)
[2020-03-24] MEDS: predniSONE 20 MG TABLET PO SCH (10:16)
[2020-03-24] MEDS: *HR* Rivaroxaban 10 MG TABLET PO SCH (16:49)
[2020-03-24] MEDS: Azithromycin 500 MG in 0.9 % Sodium Chloride 250 ML IVPB SCH (19:58)
[2020-03-25] MEDS: Piperacillin/Tazobactam 3.375 GM in 0.9 % Sodium Chloride Mini Bag 100 ML IVPB SCH ×3 (00:20→15:05)
[2020-03-25] MEDS: Ipratropium/Albuterol Neb 3 ML IH SCH ×5 (03:42→19:53)
[2020-03-25 04:47] LABS: Basophils % 0.1 %; Hematocrit 27.3 % (37.5-50.1); Hemoglobin 8.1 g/dL (12.9-16.9); Immature Granulocytes % 0.5 % (0-4); Mean Corpuscular HGB Conc 29.7 g/dL (31.6-35.5); Mean Corpuscular Hemoglobin 27.3 pg (28.0-33.3); Mean Corpuscular Volume 91.9 fL (83.0-100.0); Mean Platelet Volume 9.8 fL (9.4-12.4); Monocytes # 0.8 K/mcL (0.0-1.3); Monocytes % 7.7 %; Nucleated Red Blood Cells 0.6 /100 WBC (0); Platelet Count 230 K/mcL (140-400); Red Blood Count 2.97 M/mcL (4.19-5.50); Red Cell Distribution Width 20.6 % (11.5-14.5); Segmented Neutrophils % 81.7 %; White Blood Count 9.8 K/mcL (4.3-11.1)
[2020-03-25 04:50] LABS: BUN/Creatinine Ratio 17 (6-26); Blood Urea Nitrogen 21 mg/dL (6-20); Calcium 7.9 mg/dL (8.6-10.3); Carbon Dioxide 35 mEq/L (23-29); Chloride 101 mEq/L (98-107); Glucose 116 mg/dL (70-105); Osmolality,Calculated 290 (280-300); Potassium 4.3 mEq/L (3.5-5.1); Sodium 138 mEq/L (136-145); eGFR For African Americans > 60 (> 60); eGFR For Non-African Americans 60 (> 60)
[2020-03-25] MEDS: Aspirin Enteric Coated 81 MG Tablet PO SCH (07:47)
[2020-03-25] MEDS: Lactulose Oral Soln 20 GM/30 ML UDC PO SCH ×3 (07:47→21:12)
[2020-03-25] MEDS: predniSONE 20 MG TABLET PO SCH (07:48)
[2020-03-25] MEDS: Metoprolol XL (24 HR) Succ 25 MG TAB.ER.24H PO SCH (07:48)
[2020-03-25] MEDS: *HR* Methadone 10 MG TABLET PO SCH (07:48)
[2020-03-25] MEDS: Colchicine 0.6 MG TABLET PO SCH (07:48)
[2020-03-25] MEDS: *HR* Rivaroxaban 10 MG TABLET PO SCH (15:05)
[2020-03-26] MEDS: Piperacillin/Tazobactam 3.375 GM in 0.9 % Sodium Chloride Mini Bag 100 ML IVPB SCH ×2 (00:05→07:34)
[2020-03-26] MEDS: Ipratropium/Albuterol Neb 3 ML IH SCH ×4 (00:07→11:41)
[2020-03-26] MEDS: Aspirin Enteric Coated 81 MG Tablet PO SCH (07:33)
[2020-03-26] MEDS: predniSONE 20 MG TABLET PO SCH (07:33)
[2020-03-26] MEDS: *HR* Methadone 10 MG TABLET PO SCH (07:33)
[2020-03-26] MEDS: Metoprolol XL (24 HR) Succ 25 MG TAB.ER.24H PO SCH (07:34)
[2020-03-26] MEDS: Colchicine 0.6 MG TABLET PO SCH (07:34)
[2020-03-26] MEDS: Lactulose Oral Soln 20 GM/30 ML UDC PO SCH ×2 (07:37→15:05)
[2020-03-26 08:16] LABS: Basophils % 0.1 %; Eosinophils % 0.1 %; Red Cell Distribution Width 20.8 % (11.5-14.5)
[2020-03-26 08:17] LABS: Hemoglobin 8.6 g/dL (12.9-16.9); Immature Granulocytes % 0.7 % (0-4); Mean Corpuscular HGB Conc 28.7 g/dL (31.6-35.5); Mean Corpuscular Hemoglobin 26.5 pg (28.0-33.3); Mean Corpuscular Volume 92.6 fL (83.0-100.0); Mean Platelet Volume 9.9 fL (9.4-12.4); Monocytes # 1.3 K/mcL (0.0-1.3); Monocytes % 9.3 %; Neutrophils # 10.8 K/mcL (1.6-8.9); Nucleated Red Blood Cells 0.7 /100 WBC (0); Platelet Count 259 K/mcL (140-400); Red Blood Count 3.24 M/mcL (4.19-5.50); Segmented Neutrophils % 75.8 %; White Blood Count 14.3 K/mcL (4.3-11.1)
[2020-03-26 08:34] LABS: BUN/Creatinine Ratio 15 (6-26); Blood Urea Nitrogen 17 mg/dL (6-20); Calcium 8.2 mg/dL (8.6-10.3); Carbon Dioxide 33 mEq/L (23-29); Chloride 102 mEq/L (98-107); Glucose 87 mg/dL (70-105); Osmolality,Calculated 287 (280-300); Potassium 3.6 mEq/L (3.5-5.1); Sodium 138 mEq/L (136-145); eGFR For African Americans > 60 (> 60); eGFR For Non-African Americans > 60 (> 60)
[2020-03-26 08:37] LABS: Hypochromasia Present (Not Present); Macrocytosis Present (Not Present); Platelet Estimate Normal (Normal)
[2020-03-26 11:33] VITALS: BP 123/66
[2020-03-26] MEDS: *HR* Rivaroxaban 10 MG TABLET PO SCH (15:06)
== END 2020-03-26 16:25 | disposition home or self-care (01) | DRG 871 ==
LOC: EMEROOARM 18:16 → 2ANU 18:16 → SUATTDRO 22:46 → 2ANU 23:23
PROVIDERS: ADMIT Student in an Organized Health Care Education/Training Program; ATTEND Student in an Organized Health Care Education/Training Program

== ENCOUNTER 2020-10-20 15:02 | Inpatient (IN) ==
[2020-10-20] MEDS ORDERED: Dexmedetomidine HCl 400 MCG/100 ML MLS IVC ONE (23:18)
[2020-10-20] MEDS: Dexmedetomidine HCl 400 MCG/100 ML MLS IVC SCH (23:30)
[2020-10-20] MEDS ORDERED: Artificial Tears SOLN 15 ML BOTTLE BOTH EYES PRN (23:48)
[2020-10-20] MEDS ORDERED: Naloxone 0.4 MG/ML INJ IVP PRN (23:48)
[2020-10-21 00:11] LABS: ABG Base Excess 14 mEq/L (-2 to 3); ABG HCO3 40 mEq/L (21-27); ABG Oxygen Saturation 95 % (95-98); ABG PCO2 58 mmHg (35-45); ABG PH 7.45 pH Units (7.32-7.45); ABG PO2 77 mmHg (85-104); ABG TCO2 42 mEq/L (20-26); Blood Gas VT 450 cc
[2020-10-21] MEDS: Artificial Tears SOLN 15 ML BOTTLE BOTH EYES SCH ×7 (00:16→23:46)
[2020-10-21] MEDS ORDERED: *HR* FentaNYL (PF) 100 MCG/2 ML VIAL ONE (00:36)
[2020-10-21] MEDS: FentaNYL (PF) 1,000 MCG/100 ML IV.SOLN IVC SCH ×2 (00:40→05:00)
[2020-10-21] MEDS: *HR* FentaNYL (PF) 100 MCG/2 ML VIAL IVP PRN (01:00)
[2020-10-21 01:13] LABS: Basophils % 0.2 %; Mean Corpuscular Volume 82.1 fL (83.0-100.0); Mean Platelet Volume 9.9 fL (9.4-12.4); Nucleated Red Blood Cells 0.1 /100 WBC (0); Red Cell Distribution Width 22.2 % (11.5-14.5)
[2020-10-21 01:13] LABS: VBG Ionized Calcium 1.26 mmol/L (1.15-1.35)
[2020-10-21 01:14] LABS: Basophils # 0.1 K/mcL (0.0-0.2); Hematocrit 30.8 % (37.5-50.1); Hemoglobin 8.9 g/dL (12.9-16.9); Lymphocytes # 1.8 K/mcL (0.6-4.6); Lymphocytes % 6.6 %; Mean Corpuscular HGB Conc 28.9 g/dL (31.6-35.5); Mean Corpuscular Hemoglobin 23.7 pg (28.0-33.3); Monocytes # 1.2 K/mcL (0.0-1.3); Monocytes % 4.5 %; Neutrophils # 22.9 K/mcL (1.6-8.9); Platelet Count 222 K/mcL (140-400); Red Blood Count 3.75 M/mcL (4.19-5.50); Segmented Neutrophils % 85.7 %; White Blood Count 26.7 K/mcL (4.3-11.1)
[2020-10-21 01:41] LABS: Alanine Aminotransferase 13 Units/L (7-52); Albumin 2.9 g/dL (3.5-5.7); Alkaline Phosphatase 54 Units/L (34-104); Aspartate Amino Transferase 16 Units/L (13-39); BUN/Creatinine Ratio 26 (6-26); Bilirubin,Total 0.5 mg/dL (0.3-1.0); Blood Urea Nitrogen 25 mg/dL (6-20); Calcium 8.8 mg/dL (8.6-10.3); Carbon Dioxide 40 mEq/L (23-29); Chloride 113 mEq/L (98-107); Globulin 2.9 g/dL (2.4-3.5); Glucose 92 mg/dL (70-105); Magnesium 2.2 mg/dL (1.6-2.6); Osmolality,Calculated 326 (280-300); Phosphorous 2.6 mg/dL (2.7-4.5); Potassium 3.3 mEq/L (3.5-5.1); Sodium 156 mEq/L (136-145); Total Protein 5.8 g/dL (6.4-8.9); eGFR For African Americans > 60 (> 60); eGFR For Non-African Americans > 60 (> 60)
[2020-10-21 01:42] LABS: Anisocytosis 1+ (Not Present); Target Cells 1+ (Not Present)
[2020-10-21 01:43] LABS: Platelet Estimate Normal (Normal); Poikilocytosis 1+ (Not Present)
[2020-10-21 04:22] LABS: ABG Base Excess 14 mEq/L (-2 to 3); ABG HCO3 40 mEq/L (21-27); ABG Oxygen Saturation 96 % (95-98); ABG PCO2 61 mmHg (35-45); ABG PH 7.43 pH Units (7.32-7.45); ABG PO2 83 mmHg (85-104); ABG TCO2 42 mEq/L (20-26); Blood Gas VT 400 cc
[2020-10-21] MEDS: Dexmedetomidine HCl 400 MCG/100 ML MLS IVC SCH ×3 (05:00→17:55)
[2020-10-21] MEDS ORDERED: Ipratropium/Albuterol Neb 3 ML IH PRN (06:46)
[2020-10-21] MEDS: Pantoprazole 40 MG VIAL IVP SCH (07:58)
[2020-10-21] MEDS: Piperacillin/Tazobactam 3.375 GM in 0.9 % Sodium Chloride Mini Bag 100 ML IVPB SCH ×3 (07:58→23:47)
[2020-10-21] MEDS: predniSONE 20 MG TABLET GTUBE SCH (08:10)
[2020-10-21] MEDS: Chlorhexidine Rinse 15 ML MOUTHWASH MM SCH ×2 (08:10→19:47)
[2020-10-21] MEDS: *HR* Heparin 5,000 UNIT/ML VIAL SQ SCH ×2 (12:17→17:32)
[2020-10-21 13:55] LABS: Hemoglobin 8.2 g/dL (12.9-16.9)
[2020-10-21 13:56] LABS: Hematocrit 29.5 % (37.5-50.1); Mean Corpuscular HGB Conc 27.8 g/dL (31.6-35.5); Mean Corpuscular Hemoglobin 23.1 pg (28.0-33.3); Mean Corpuscular Volume 83.1 fL (83.0-100.0); Mean Platelet Volume 10.4 fL (9.4-12.4); Platelet Count 208 K/mcL (140-400); Red Blood Count 3.55 M/mcL (4.19-5.50); Red Cell Distribution Width 22.3 % (11.5-14.5); White Blood Count 18.1 K/mcL (4.3-11.1)
[2020-10-21 14:18] LABS: Magnesium 2.4 mg/dL (1.6-2.6); Phosphorous 4.4 mg/dL (2.7-4.5)
[2020-10-21 14:25] LABS: BUN/Creatinine Ratio 30 (6-26); Blood Urea Nitrogen 32 mg/dL (6-20); Calcium 8.7 mg/dL (8.6-10.3); Carbon Dioxide 41 mEq/L (23-29); Chloride 115 mEq/L (98-107); Glucose 108 mg/dL (70-105); Osmolality,Calculated 327 (280-300); Sodium 155 mEq/L (136-145); eGFR For African Americans > 60 (> 60); eGFR For Non-African Americans > 60 (> 60)
[2020-10-21] MEDS: *HR* LORazepam 0.5 MG TABLET PO SCH ×2 (19:47→22:50)
[2020-10-21] MEDS: *HR* Methadone 10 MG TABLET PO SCH (21:50)
[2020-10-22] MEDS: Dexmedetomidine HCl 400 MCG/100 ML MLS IVC SCH ×5 (00:35→20:14)
[2020-10-22] MEDS: Artificial Tears SOLN 15 ML BOTTLE BOTH EYES SCH ×5 (03:27→19:17)
[2020-10-22 03:54] LABS: Eosinophils % 0.6 %; Hemoglobin 8.5 g/dL (12.9-16.9); Immature Granulocytes % 1.6 % (0-4); Monocytes % 5.8 %; Red Cell Distribution Width 22.5 % (11.5-14.5)
[2020-10-22 03:56] LABS: Basophils % 0.2 %; Eosinophils # 0.1 K/mcL (0.0-0.6); Hematocrit 29.8 % (37.5-50.1); Lymphocytes # 1.7 K/mcL (0.6-4.6); Mean Corpuscular HGB Conc 28.5 g/dL (31.6-35.5); Mean Corpuscular Hemoglobin 23.3 pg (28.0-33.3); Mean Corpuscular Volume 81.6 fL (83.0-100.0); Mean Platelet Volume 10.7 fL (9.4-12.4); Monocytes # 0.9 K/mcL (0.0-1.3); Neutrophils # 12.4 K/mcL (1.6-8.9); Nucleated Red Blood Cells 0.1 /100 WBC (0); Platelet Count 207 K/mcL (140-400); Red Blood Count 3.65 M/mcL (4.19-5.50); Segmented Neutrophils % 80.8 %; White Blood Count 15.3 K/mcL (4.3-11.1)
[2020-10-22 04:02] LABS: BUN/Creatinine Ratio 32 (6-26); Blood Urea Nitrogen 34 mg/dL (6-20); Calcium 8.5 mg/dL (8.6-10.3); Carbon Dioxide 36 mEq/L (23-29); Chloride 115 mEq/L (98-107); Glucose 74 mg/dL (70-105); Magnesium 2.1 mg/dL (1.6-2.6); Osmolality,Calculated 328 (280-300); Potassium 4.1 mEq/L (3.5-5.1); Sodium 156 mEq/L (136-145); eGFR For African Americans > 60 (> 60); eGFR For Non-African Americans > 60 (> 60)
[2020-10-22 05:08] LABS: Hypochromasia Present (Not Present); Platelet Estimate Normal (Normal)
[2020-10-22] MEDS: *HR* Heparin 5,000 UNIT/ML VIAL SQ SCH (05:36)
[2020-10-22] MEDS: Piperacillin/Tazobactam 3.375 GM in 0.9 % Sodium Chloride Mini Bag 100 ML IVPB SCH ×3 (07:51→23:40)
[2020-10-22] MEDS: Pantoprazole 40 MG VIAL IVP SCH (07:52)
[2020-10-22] MEDS: *HR* Methadone 10 MG TABLET PO SCH ×3 (09:08→20:14)
[2020-10-22] MEDS: predniSONE 20 MG TABLET GTUBE SCH (09:08)
[2020-10-22] MEDS: *HR* LORazepam 0.5 MG TABLET PO SCH ×3 (09:08→20:14)
[2020-10-22] MEDS: Folic Acid 1 MG TABLET PO SCH (09:08)
[2020-10-22] MEDS: Chlorhexidine Rinse 15 ML MOUTHWASH MM SCH ×2 (09:14→19:17)
[2020-10-22] MEDS ORDERED: E-Z-PAQUE (BARIUM SULF) SUSP 1 BOTTLE PO ONE (13:04)
[2020-10-22] MEDS ORDERED: E-Z-HD (BARIUM SULF) SUSPENSION PO ONE (13:04)
[2020-10-22] MEDS ORDERED: *HR* Rivaroxaban 10 MG TABLET PO SCH (15:00)
[2020-10-22] MEDS: Ipratropium/Albuterol Neb 3 ML IH SCH ×2 (15:55→20:26)
[2020-10-22] MEDS: MethylPREDNISolone 40 MG/ML VIAL IVP SCH (19:37)
[2020-10-22] MEDS: FentaNYL (PF) 1,000 MCG/100 ML IV.SOLN IVC SCH (21:48)
[2020-10-23] MEDS: Ipratropium/Albuterol Neb 3 ML IH SCH ×7 (00:07→23:20)
[2020-10-23] MEDS: *HR* FentaNYL (PF) 100 MCG/2 ML VIAL IVP PRN (00:51)
[2020-10-23] MEDS: Dexmedetomidine HCl 400 MCG/100 ML MLS IVC SCH ×2 (02:10→07:56)
[2020-10-23 04:25] LABS: Basophils % 0.1 %; Hematocrit 26.9 % (37.5-50.1); Hemoglobin 7.8 g/dL (12.9-16.9); Immature Granulocytes % 1.2 % (0-4); Lymphocytes # 0.8 K/mcL (0.6-4.6); Lymphocytes % 6.3 %; Mean Corpuscular Hemoglobin 23.1 pg (28.0-33.3); Mean Corpuscular Volume 79.8 fL (83.0-100.0); Mean Platelet Volume 10.6 fL (9.4-12.4); Monocytes # 0.3 K/mcL (0.0-1.3); Monocytes % 2.5 %; Platelet Count 188 K/mcL (140-400); Red Blood Count 3.37 M/mcL (4.19-5.50); Red Cell Distribution Width 22.4 % (11.5-14.5); Segmented Neutrophils % 89.9 %; White Blood Count 13.3 K/mcL (4.3-11.1)
[2020-10-23 04:48] LABS: BUN/Creatinine Ratio 34 (6-26); Blood Urea Nitrogen 38 mg/dL (6-20); Calcium 8.3 mg/dL (8.6-10.3); Carbon Dioxide 32 mEq/L (23-29); Chloride 107 mEq/L (98-107); Glucose 158 mg/dL (70-105); Magnesium 2.2 mg/dL (1.6-2.6); Osmolality,Calculated 312 (280-300); Phosphorous 4.8 mg/dL (2.7-4.5); Potassium 4.5 mEq/L (3.5-5.1); Sodium 145 mEq/L (136-145); eGFR For African Americans > 60 (> 60); eGFR For Non-African Americans > 60 (> 60)
[2020-10-23] MEDS: MethylPREDNISolone 40 MG/ML VIAL IVP SCH (05:03)
[2020-10-23] MEDS: Piperacillin/Tazobactam 3.375 GM in 0.9 % Sodium Chloride Mini Bag 100 ML IVPB SCH ×2 (07:57→16:29)
[2020-10-23] MEDS: Pantoprazole 40 MG VIAL IVP SCH (07:58)
[2020-10-23] MEDS: *HR* Methadone 10 MG TABLET PO SCH ×3 (07:58→21:11)
[2020-10-23] MEDS: Folic Acid 1 MG TABLET PO SCH (07:58)
[2020-10-23] MEDS: Chlorhexidine Rinse 15 ML MOUTHWASH MM SCH (07:58)
[2020-10-23] MEDS: *HR* LORazepam 0.5 MG TABLET PO SCH ×3 (07:59→21:11)
[2020-10-23] MEDS ORDERED: Naloxone 0.4 MG/ML INJ IVP PRN (12:33)
[2020-10-23] MEDS ORDERED: Dexmedetomidine HCl 400 MCG/100 ML MLS IVC SCH (12:33)
[2020-10-23] MEDS: *HR* Rivaroxaban 10 MG TABLET PO SCH (16:29)
[2020-10-24] MEDS: Piperacillin/Tazobactam 3.375 GM in 0.9 % Sodium Chloride Mini Bag 100 ML IVPB SCH (00:03)
[2020-10-24] MEDS: Ipratropium/Albuterol Neb 3 ML IH SCH ×5 (03:15→19:42)
[2020-10-24] MEDS: *HR* LORazepam 0.5 MG TABLET PO SCH ×3 (08:22→21:40)
[2020-10-24] MEDS: Folic Acid 1 MG TABLET PO SCH (08:22)
[2020-10-24] MEDS: *HR* Methadone 10 MG TABLET PO SCH ×3 (08:22→21:40)
[2020-10-24] MEDS: predniSONE 20 MG TABLET PO SCH (08:23)
[2020-10-24] MEDS ORDERED: MethylPREDNISolone 40 MG/ML VIAL IVP SCH (09:00)
[2020-10-24] MEDS ORDERED: Isovue-370 500 ML BOTTLE IVP ONE (09:30)
[2020-10-24] MEDS: *HR* Rivaroxaban 10 MG TABLET PO SCH (16:46)
[2020-10-24] MEDS ORDERED: Nitroglycerin 0.4 MG TAB.SUBL SL PRN (17:35)
[2020-10-24 19:19] LABS: Basophils % 0.1 %; Hematocrit 25.6 % (37.5-50.1); Hemoglobin 7.6 g/dL (12.9-16.9); Immature Granulocytes % 0.7 % (0-4); Lymphocytes # 0.8 K/mcL (0.6-4.6); Lymphocytes % 5.8 %; Mean Corpuscular HGB Conc 29.7 g/dL (31.6-35.5); Mean Corpuscular Hemoglobin 23.6 pg (28.0-33.3); Mean Corpuscular Volume 79.5 fL (83.0-100.0); Mean Platelet Volume 11.4 fL (9.4-12.4); Monocytes % 6.7 %; Neutrophils # 12.4 K/mcL (1.6-8.9); Platelet Count 241 K/mcL (140-400); Red Blood Count 3.22 M/mcL (4.19-5.50); Red Cell Distribution Width 22.5 % (11.5-14.5); Segmented Neutrophils % 86.7 %; White Blood Count 14.3 K/mcL (4.3-11.1)
[2020-10-24 19:34] LABS: Alanine Aminotransferase 13 Units/L (7-52); Albumin 2.8 g/dL (3.5-5.7); Albumin/Globulin Ratio 1.1 (1.1-2.2); Alkaline Phosphatase 48 Units/L (34-104); Aspartate Amino Transferase 13 Units/L (13-39); BUN/Creatinine Ratio 17 (6-26); Bilirubin,Total 0.4 mg/dL (0.3-1.0); Blood Urea Nitrogen 19 mg/dL (6-20); Calcium 8.1 mg/dL (8.6-10.3); Carbon Dioxide 29 mEq/L (23-29); Chloride 105 mEq/L (98-107); Globulin 2.5 g/dL (2.4-3.5); Glucose 200 mg/dL (70-105); Osmolality,Calculated 298 (280-300); Phosphorous 3.6 mg/dL (2.7-4.5); Potassium 4.1 mEq/L (3.5-5.1); Sodium 140 mEq/L (136-145); Total Protein 5.3 g/dL (6.4-8.9); eGFR For African Americans > 60 (> 60); eGFR For Non-African Americans > 60 (> 60)
[2020-10-24 19:37] LABS: VBG Ionized Calcium 1.15 mmol/L (1.15-1.35)
[2020-10-24] MEDS: Artificial Tears SOLN 15 ML BOTTLE BOTH EYES SCH (21:40)
[2020-10-25] MEDS: Ipratropium/Albuterol Neb 3 ML IH SCH ×7 (00:05→23:25)
[2020-10-25 03:59] LABS: Basophils % 0.1 %; Eosinophils % 0.8 %
[2020-10-25 04:01] LABS: Eosinophils # 0.1 K/mcL (0.0-0.6); Hematocrit 24.1 % (37.5-50.1); Immature Granulocytes % 0.7 % (0-4); Lymphocytes % 12.7 %; Mean Corpuscular Volume 79.3 fL (83.0-100.0); Mean Platelet Volume 10.8 fL (9.4-12.4); Monocytes # 1.3 K/mcL (0.0-1.3); Monocytes % 8.1 %; Platelet Count 248 K/mcL (140-400); Red Blood Count 3.04 M/mcL (4.19-5.50); Red Cell Distribution Width 22.7 % (11.5-14.5); Segmented Neutrophils % 77.6 %; White Blood Count 15.5 K/mcL (4.3-11.1)
[2020-10-25 04:13] LABS: BUN/Creatinine Ratio 15 (6-26); Blood Urea Nitrogen 16 mg/dL (6-20); Calcium 8.1 mg/dL (8.6-10.3); Carbon Dioxide 31 mEq/L (23-29); Chloride 106 mEq/L (98-107); Glucose 83 mg/dL (70-105); Osmolality,Calculated 292 (280-300); Phosphorous 2.9 mg/dL (2.7-4.5); Potassium 3.6 mEq/L (3.5-5.1); Sodium 141 mEq/L (136-145); eGFR For African Americans > 60 (> 60); eGFR For Non-African Americans > 60 (> 60)
[2020-10-25] MEDS: predniSONE 20 MG TABLET PO SCH (09:09)
[2020-10-25] MEDS: amLODIPine 5 MG TABLET PO SCH (09:09)
[2020-10-25] MEDS: Folic Acid 1 MG TABLET PO SCH (09:09)
[2020-10-25] MEDS: *HR* LORazepam 0.5 MG TABLET PO SCH ×3 (09:09→22:31)
[2020-10-25] MEDS: *HR* Methadone 10 MG TABLET PO SCH ×3 (09:10→22:31)
[2020-10-25 09:14] LABS: Hematocrit 26.1 % (37.5-50.1); Hemoglobin 7.5 g/dL (12.9-16.9)
[2020-10-25] MEDS: Pantoprazole 40 MG VIAL IVP SCH ×2 (09:26→17:29)
[2020-10-25 13:36] LABS: Hematocrit 26.7 % (37.5-50.1); Hemoglobin 7.6 g/dL (12.9-16.9)
[2020-10-25 13:55] LABS: ABG Base Excess 4 mEq/L (-2 to 3); ABG HCO3 31 mEq/L (21-27); ABG Oxygen Saturation 81 % (95-98); ABG PCO2 58 mmHg (35-45); ABG PH 7.34 pH Units (7.32-7.45); ABG PO2 49 mmHg (85-104); ABG TCO2 33 mEq/L (20-26)
[2020-10-25] MEDS: Furosemide 20 MG/2 ML VIAL IVP SCH ×2 (13:56→22:31)
[2020-10-25 14:35] LABS: Adenovirus Not Detected (Not Detect); Bordetella Pertussis Not Detected (Not Detect); Chlamydophila pneumoniae Not Detected (Not Detect); Coronavirus 229E Not Detected (Not Detect); Coronavirus HKU1 Not Detected (Not Detect); Coronavirus NL63 Not Detected (Not Detect); Coronavirus OC43 Not Detected (Not Detect); Human Metapneumovirus Not Detected (Not Detect); Human Rhinovirus/Enterovirus DETECTED (Not Detect); Influenza A Subtype 2009 H1 Not Detected (Not Detect); Influenza B Not Detected (Not Detect); Mycoplasma pneumoniae Not Detected (Not Detect); Parainfluenza Virus 1 Not Detected (Not Detect); Parainfluenza Virus 2 Not Detected (Not Detect); Parainfluenza Virus 3 Not Detected (Not Detect); Parainfluenza Virus 4 Not Detected (Not Detect); Respiratory Syncytial Virus Not Detected (Not Detect); SARS-CoV-2 Not Detected (Not Detect)
[2020-10-25] MEDS ORDERED: Haloperidol Lactate 5 MG/ML VIAL IVP ONE (14:47)
[2020-10-25] MEDS: MethylPREDNISolone 40 MG/ML VIAL IVP SCH (17:29)
[2020-10-25] MEDS: Piperacillin/Tazobactam 3.375 GM in 0.9 % Sodium Chloride Mini Bag 100 ML IVPB SCH (17:29)
[2020-10-25] MEDS: Artificial Tears SOLN 15 ML BOTTLE BOTH EYES SCH (22:40)
[2020-10-25 23:01] LABS: Hematocrit 27.6 % (37.5-50.1); Hemoglobin 7.8 g/dL (12.9-16.9)
[2020-10-26] MEDS: MethylPREDNISolone 40 MG/ML VIAL IVP SCH ×3 (00:01→16:20)
[2020-10-26 03:14] LABS: Basophils % 0.1 %; Hemoglobin 7.2 g/dL (12.9-16.9)
[2020-10-26 03:15] LABS: Hematocrit 26.3 % (37.5-50.1); Immature Granulocytes % 0.7 % (0-4); Lymphocytes # 0.4 K/mcL (0.6-4.6); Lymphocytes % 2.5 %; Mean Corpuscular HGB Conc 27.4 g/dL (31.6-35.5); Mean Corpuscular Hemoglobin 22.5 pg (28.0-33.3); Mean Corpuscular Volume 82.2 fL (83.0-100.0); Mean Platelet Volume 11.6 fL (9.4-12.4); Monocytes # 0.4 K/mcL (0.0-1.3); Monocytes % 2.7 %; Neutrophils # 15.1 K/mcL (1.6-8.9); Platelet Count 267 K/mcL (140-400); Red Cell Distribution Width 22.8 % (11.5-14.5); White Blood Count 16.1 K/mcL (4.3-11.1)
[2020-10-26 03:34] LABS: BUN/Creatinine Ratio 14 (6-26); Blood Urea Nitrogen 18 mg/dL (6-20); Calcium 8.2 mg/dL (8.6-10.3); Carbon Dioxide 32 mEq/L (23-29); Chloride 102 mEq/L (98-107); Glucose 159 mg/dL (70-105); Osmolality,Calculated 291 (280-300); Phosphorous 3.3 mg/dL (2.7-4.5); Potassium 4.2 mEq/L (3.5-5.1); Sodium 138 mEq/L (136-145); eGFR For African Americans > 60 (> 60); eGFR For Non-African Americans 60 (> 60)
[2020-10-26] MEDS: Ipratropium/Albuterol Neb 3 ML IH SCH ×5 (04:01→20:04)
[2020-10-26] MEDS: Pantoprazole 40 MG VIAL IVP SCH ×2 (06:03→16:20)
[2020-10-26] MEDS: Piperacillin/Tazobactam 3.375 GM in 0.9 % Sodium Chloride Mini Bag 100 ML IVPB SCH ×3 (08:13→15:53)
[2020-10-26] MEDS: Furosemide 20 MG/2 ML VIAL IVP SCH (08:14)
[2020-10-26] MEDS: Folic Acid 1 MG TABLET PO SCH (08:14)
[2020-10-26] MEDS: amLODIPine 5 MG TABLET PO SCH (08:15)
[2020-10-26] MEDS: *HR* LORazepam 0.5 MG TABLET PO SCH ×3 (08:15→21:18)
[2020-10-26] MEDS: *HR* Methadone 10 MG TABLET PO SCH ×3 (08:15→21:18)
[2020-10-26] MEDS ORDERED: Lidocaine -MPF 2% 5 ML VIAL ONE (09:54)
[2020-10-26 10:30] LABS: Folate 8.7 ng/mL (3.0-16.0)
[2020-10-26 10:49] LABS: Ferritin 52 ng/mL (20-250); Iron < 10 mcg/dL (65-175); Transferrin 169 mg/dL (203-362)
[2020-10-26] MEDS ORDERED: Iron Sucrose Complex 400 MG in 0.9 % Sodium Chloride 250 ML IVPB ONE (11:16)
[2020-10-26] MEDS: Furosemide 40 MG TABLET PO SCH (15:53)
[2020-10-26] MEDS: Artificial Tears SOLN 15 ML BOTTLE BOTH EYES SCH (21:19)
[2020-10-27] MEDS: Ipratropium/Albuterol Neb 3 ML IH SCH ×5 (00:02→15:22)
[2020-10-27] MEDS: Piperacillin/Tazobactam 3.375 GM in 0.9 % Sodium Chloride Mini Bag 100 ML IVPB SCH ×2 (00:59→09:37)
[2020-10-27] MEDS ORDERED: Ondansetron 4 MG/2 ML VIAL IVP PRN (01:37)
[2020-10-27] MEDS: Pantoprazole 40 MG VIAL IVP SCH (06:00)
[2020-10-27] MEDS: MethylPREDNISolone 40 MG/ML VIAL IVP SCH (06:00)
[2020-10-27 07:44] LABS: Basophils % 0.1 %; Platelet Count 390 K/mcL (140-400)
[2020-10-27 07:46] LABS: Hematocrit 25.7 % (37.5-50.1); Hemoglobin 7.5 g/dL (12.9-16.9); Immature Granulocytes % 0.8 % (0-4); Lymphocytes # 1.8 K/mcL (0.6-4.6); Lymphocytes % 8.6 %; Mean Corpuscular HGB Conc 29.2 g/dL (31.6-35.5); Mean Corpuscular Hemoglobin 23.4 pg (28.0-33.3); Mean Corpuscular Volume 80.3 fL (83.0-100.0); Mean Platelet Volume 11.3 fL (9.4-12.4); Monocytes # 1.7 K/mcL (0.0-1.3); Neutrophils # 17.3 K/mcL (1.6-8.9); Red Cell Distribution Width 23.3 % (11.5-14.5); Segmented Neutrophils % 82.5 %
[2020-10-27 07:47] LABS: BUN/Creatinine Ratio 12 (6-26); Blood Urea Nitrogen 17 mg/dL (6-20); Calcium 8.7 mg/dL (8.6-10.3); Carbon Dioxide 37 mEq/L (23-29); Chloride 99 mEq/L (98-107); Glucose 83 mg/dL (70-105); Magnesium 1.8 mg/dL (1.6-2.6); Osmolality,Calculated 289 (280-300); Phosphorous 2.8 mg/dL (2.7-4.5); Potassium 3.4 mEq/L (3.5-5.1); Sodium 139 mEq/L (136-145); eGFR For African Americans > 60 (> 60); eGFR For Non-African Americans 54 (> 60)
[2020-10-27 08:44] LABS: Anisocytosis 1+ (Not Present); Hypochromasia Present (Not Present)
[2020-10-27 08:46] LABS: Poikilocytosis 1+ (Not Present)
[2020-10-27 08:47] LABS: Platelet Estimate Normal (Normal)
[2020-10-27] MEDS: Furosemide 40 MG TABLET PO SCH (09:08)
[2020-10-27] MEDS: *HR* Methadone 10 MG TABLET PO SCH (09:36)
[2020-10-27] MEDS: *HR* LORazepam 0.5 MG TABLET PO SCH (09:36)
[2020-10-27] MEDS: amLODIPine 5 MG TABLET PO SCH (09:36)
[2020-10-27] MEDS: Folic Acid 1 MG TABLET PO SCH (09:36)
[2020-10-27 10:37] LABS: VBG HCO3 38 mEq/L (21-27); VBG PCO2 66 mmHg (41-51); VBG PH 7.37 pH Units (7.32-7.42); VBG PO2 20 mmHg (25-50)
[2020-10-27 11:14] LABS: ABG Base Excess 9 mEq/L (-2 to 3); ABG HCO3 34 mEq/L (21-27); ABG Oxygen Saturation 87 % (95-98); ABG PCO2 55 mmHg (35-45); ABG PH 7.41 pH Units (7.32-7.45); ABG PO2 54 mmHg (85-104); ABG TCO2 36 mEq/L (20-26)
[2020-10-27 11:52] VITALS: BP 123/69; PULSE 92; TEMP 98.1; O2SAT 93
[2020-10-27] MEDS ORDERED: Iron Sucrose Complex 400 MG in 0.9 % Sodium Chloride 250 ML IVPB ONE (13:29)
== END 2020-10-27 18:13 | disposition left against medical advice (07) | DRG 208 ==
LOC: ICNU 23:11 → SUATTDRO 23:11 → 2NNU 10-22 18:53 → 3BNU 10-23 18:54
PROVIDERS: ADMIT Pediatrics; ATTEND Internal Medicine
PROC: ENDOEBX (2020-10-26 11:45)